=== PATIENT | female | born 1970 | race Native Hawaiian/Other Pacific Islander ===

== ENCOUNTER 2017-02-11 14:01 | Emergency (ER) | payer SELFPAY ==
[2017-02-11 14:13] VITALS: O2SAT 100
--- NOTE | 2017-02-11 14:41 | ERPHSYRPT ---
- History of Present Illness Time Seen by Provider: 02/11/17 14:25 Source: patient Exam Limitations: clinical condition Patient Subjective Stated Complaint: lt side rash Triage Nursing Assessment: yesterday--had pain to lt side-fell asleep on heating pad with shirt on. today has skin discoloration to lt flank and pain to rash area. pain with clothing touching skin. denies shingles in past. rash flat but discolored Physician History: PATIENT COMPLAINS OF PAINFUL RASH EXTENDING FROM LEFT FLANK AROUND CHEST WALL BELOW LEFT BREAST ASSOCIATED WITH BURNING DISCOMFORT, Timing/Duration: yesterday Quality: burning, painful Severity: severe Location: other (LEFT CHEST WALL) Modifying Factors: Improves With: other (WORSE AFTER HEATING PAD) Allergies/Adverse Reactions: Penicillins Allergy (Verified 02/11/17 14:13) tramadol [From Ultram] Allergy (Verified 02/11/17 14:13) Home Medications: No Home Meds 1 ea MC UD 02/11/17 [History] Hx Tetanus, Diphtheria Vaccination/Date Given: Yes Hx Influenza Vaccination/Date Given: Yes Hx Pneumococcal Vaccination/Date Given: No Immunizations Up to Date: Yes - Review of Systems Constitutional: No Fever, No Chills Eyes: No Symptoms Ears, Nose, & Throat: No Symptoms Respiratory: No Symptoms, No Cough, No Dyspnea Cardiac: No Symptoms, No Chest Pain, No Edema, No Syncope Abdominal/Gastrointestinal: No Symptoms, No Abdominal Pain, No Nausea, No Vomiting, No Diarrhea Genitourinary Symptoms: No Symptoms, No Dysuria Musculoskeletal: No Symptoms, No Back Pain, No Neck Pain Skin: Other (CLUSTER LESIONS VESICULAR LESIONS ), No Rash Neurological: No Dizziness, No Focal Weakness, No Sensory Changes Psychological: No Symptoms Endocrine: No Symptoms All Other Systems: Reviewed and Negative - Past Medical History Pertinent Past Medical History: No - Past Surgical History Past Surgical History: Yes Female Surgical History: Hysterectomy, Breast Implant - Social History Smoking Status: Never smoker Exposure to second hand smoke: No Drug Use: none Patient Lives Alone: No - Nursing Vital Signs Nursing Vital Signs: Initial Vital Signs Temperature 99.5 F 02/11/17 14:08 Pulse Rate 91 H 02/11/17 14:08 Respiratory Rate 18 02/11/17 14:08 Blood Pressure 137/74 02/11/17 14:08 O2 Sat by Pulse Oximetry 100 02/11/17 14:08 Pain Scale Pain Intensity 8 - Physical Exam General Appearance: no apparent distress, alert Eye Exam: PERRL/EOMI, eyes nml inspection Ears, Nose, Throat Exam: normal ENT inspection, pharynx normal, moist mucous membranes Neck Exam: normal inspection, non-tender, supple, full range of motion Respiratory Exam: normal breath sounds, lungs clear, No respiratory distress Cardiovascular Exam: regular rate/rhythm, normal heart sounds Gastrointestinal/Abdomen Exam: soft, mass, No tenderness Back Exam: normal inspection, normal range of motion, No CVA tenderness, No vertebral tenderness Extremity Exam: normal inspection, normal range of motion Neurologic Exam: alert, oriented x 3, cooperative, normal mood/affect, sensation nml, No motor deficits Skin Exam: normal color, warm, dry, rash (VESICULAR LESIONS LEFT FLANK DERMATOME 9TH TO 11TH EXTENDING AROUND ANTERIOR CHEST WALL BELOW BREAST) SpO2 Interpretation: normal SpO2: 100 Oxygen Delivery: Room Air - Departure Time of Disposition: 14:55 Departure Disposition: Home Clinical Impression: HERPES ZOSTER Condition: Stable Critical Care Time: No Additional Instructions: BEGIN VALTEX 1000MG EVERY 8 HOURS FOR 1 WEEK. APPLY ZOVIRAX OINTMENT 5% OVER RASH TWICE DAILY FOR 1 WEEK. NORCO 10/325 DEBORAH 4 HOURS FOR PAIN. CONSULT YOUR FAMILY PHYSICIAN IN 1 WEEK FOR FOLLOWUP. Prescriptions: Hydrocodone/APAP 10/325 mg [[place] 10/325 MG Tablet] 1 tab PO Q4H PRN PRN # 20 tablet PRN Reason: Pain Valacyclovir HCl [Valtrex] 1,000 mg PO TID #21 tablet
[2017-02-11 15:04] VITALS: BP 131/70; PULSE 76
== END 2017-02-11 15:04 | disposition home or self-care (01) ==
LOC: ED 14:01
DX: B02.9 Zoster without complications (principal)
CPT/HCPCS: 99283